=== PATIENT | female | born 1935 | race Caucasian/White ===

== ENCOUNTER 2016-10-07 15:16 | Inpatient (IN) | payer MEDICARE, BC ==
[~2016-10-07] VITALS: Ht 160 cm; Wt 61.3 kg
[~2016-10-07 15:16] MED LIST: ALDACTONE25 MG PO; ARICEPT23 MG PO; ATIVAN0.5 MG PO; FLUTICASONE PRO16 GM NASAL; GABAPENTIN100 MG PO; LEXAPRO10 MG PO; LISINOPRIL10 MG PO; MOBIC7.5 MG PO; NAMENDA10 MG PO; NAMENDA5 MG PO; PROZAC10 MG PO; TAPAZOLE 5 MG TA5 MG PO; TENORMIN25 MG PO; VITAMIN B-121000 MCG PO; VITAMIN D250000 UNIT PO; VITAMIN D5000 UNIT PO; VITAMIN D50000 UNIT PO; ZOLOFT25 MG PO
[2016-10-07 16:53] LABS: BASOPHILS 0.1 % (0.0-2.0); EOSINOPHILS 0.3 % (0-7); HEMATOCRIT 38.7 % (36.0-48.0); HEMOGLOBIN 12.5 g/dL (12-16); IMMATURE GRANULOCYTES 0.4 % (0-5); LYMPHOCYTES 13.8 % (15-50); MCHC 32.3 g/dL (31.0-37.0); MCV 86.8 fL (80.0-100.0); MEAN PLATELET VOLUME 10.1 fL (7.4-10.4); MONOCYTES 7.7 % (2-11); NEUTROPHILS 77.7 % (40-80); PLATELET COUNT 215 10x3/uL (130-400); RBC 4.46 10x6/uL (4.00-5.40); RDW 12.7 % (11.5-14.5); WBC 15.5 10x3/uL (4.8-10.8)
[2016-10-07 17:04] LABS: APPEARANCE CLEAR (CLEAR); BILIRUBIN NEGATIVE (NEGATIVE); COLOR YELLOW (YELLOW); GLUCOSE NEGATIVE (NEGATIVE); KETONE NEGATIVE (NEGATIVE); LEUKOCYTE ESTERASE NEGATIVE (NEGATIVE); NITRITE NEGATIVE (NEGATIVE); PROTEIN NEGATIVE (NEGATIVE); UROBILINOGEN NORMAL (NORMAL)
[2016-10-07 17:27] LABS: ALBUMIN 3.6 g/dL (3.4-5.0); ANION GAP 13.4 mmol/L (8-16); BILIRUBIN - TOTAL 0.24 mg/dL (0.2-1.3); CALCIUM 9.1 mg/dL (8.5-10.1); CARBON DIOXIDE 26.7 mmol/L (21.0-32.0); CREATININE - SERUM 0.8 mg/dL (0.6-1.3); POTASSIUM - SERUM 4.1 mmol/L (3.5-5.1); PROTEIN - SERUM 6.5 g/dL (6.4-8.2)
--- NOTE | 2016-10-07 18:27 | NUR ---
RAMIN HI CM contacted patient's daughter, Padma Mayes @[phone] regarding permission for her mother's admission to Detention. Patient's daughter states she is in agreement to her mother being admitted to Detention. States patient has been more aggressive and non-compliant with her care over the past 6 months. Also, states patient has not been able to make a complete sentence for the past year. Ms Mayes states she may have to move her mother to another facility, due to the [facility]'s concerns for the safety of the other clients. This information was conveyed to the attending PA and . Beatrice Wynne RN, CM.
[2016-10-08 01:31] VITALS: BP 118/60; BMI 29.3
[2016-10-08] MEDS ORDERED: RISPERDAL0.25 MG PO (03:39)
[2016-10-08] MEDS ORDERED: ACETAMINOPHEN500 M1 PO (03:41)
--- NOTE | 2016-10-08 03:42 | NUR ---
PATIENT RECIEVED FROM [facility] NEW ADMIT TO DOCTOR JACOBSON. ADMITTED FOR INCREASED AGGRESSION AND ALTERED MENTAL STATUS. PATIENT HAD ATTACKED FELLOW RESIDENTS OF THE [facility]. DAUGHTER, PAULA MILTON, P.O.A, HAS GIVEN VERBAL CONSENT FOR ADMISSION TO [facility] TO BIJAN SALAZAR R.N. AND LARA JAIMES R.N. FOR TREATMENT AND PRN HALDOL AND ATIVAN FOR AGRESSION/ANXIETY. VITALS STABLE UPON ADMIT. ORIENTED TO UNIT. CALM AND COOPERATIVE WITH STAFF AND ASSESSMENT. IVORY ALARM ON BED.
[2016-10-08 06:06] LABS: BASOPHILS 0 % (0.0-2.0); EOSINOPHILS 0.9 % (0-7); HEMOGLOBIN 12.7 g/dL (12-16); IMMATURE GRANULOCYTES 0.3 % (0-5); LYMPHOCYTES 19.7 % (15-50); MCH 27.8 pg (26.0-34.0); MCHC 32.6 g/dL (31.0-37.0); MCV 85.3 fL (80.0-100.0); MEAN PLATELET VOLUME 10.2 fL (7.4-10.4); MONOCYTES 7.9 % (2-11); NEUTROPHILS 71.2 % (40-80); PLATELET COUNT 214 10x3/uL (130-400); RBC 4.57 10x6/uL (4.00-5.40); RDW 12.8 % (11.5-14.5)
[2016-10-08 06:08] LABS: WBC 10.6 10x3/uL (4.8-10.8)
[2016-10-08 06:24] LABS: HEMOGLOBIN A1C 5.3 % (4.8-6.0)
[2016-10-08 06:36] LABS: ALBUMIN 3.2 g/dL (3.4-5.0); ANION GAP 12.4 mmol/L (8-16); BILIRUBIN - TOTAL 0.4 mg/dL (0.2-1.3); CALCIUM 9.2 mg/dL (8.5-10.1); CARBON DIOXIDE 26.2 mmol/L (21.0-32.0); CHOL - HDL RATIO 3.5 ratio (2.3-4.1); CREATININE - SERUM 0.8 mg/dL (0.6-1.3); LDL-HDL RATIO 2.1 ratio (1.5-3.5); POTASSIUM - SERUM 4.6 mmol/L (3.5-5.1); PROTEIN - SERUM 6.5 g/dL (6.4-8.2); THYROID STIMULATING HORMONE 0.02 uIU/mL (0.36-3.74)
[2016-10-08 07:57] VITALS: BP 113/64
[2016-10-08 08:41] VITALS: Ht 160 cm; Wt 61.3 kg
--- NOTE | 2016-10-08 12:36 | NUR ---
B) Patient is awake and alert, but she is confused, she knows her name only, she uses word salad and she is ambulating independently. Patient does not comprehend directions and she is unable to communicate her needs. She gets easily upset. I) Provide prescribed meds and redirect as needed. R) Patient is compliant with meds. She has not shown any aggression today. P) Continue plan of care.
--- NOTE | 2016-10-08 17:05 | PSY ---
PATIENT NAME:JENNIFER TURNER MEDICAL RECORD: [id number] : 39 LOCATION:[facility] ADMISSION DATE: 10/07/16 ACCOUNT: [id number] PSYCHIATRIC EVALUATION DATE OF EVALUATION: 10/08/16 Initial Psychiatric Workup IDENTIFYING DATA: This is now the third [facility] admission for this 81-year-old white female. HISTORY OF PRESENT ILLNESS: The patient had been previously admitted in March and also in July 2016. The patient has been a resident of the [facility] for some time. She has had repeated episodes of confusion and combativeness. Over the last 48 hours, the patient has been particularly combative and has required rehospitalization. Prior to being admitted to the [facility], the patient had lived in [place]. She had been exhibiting behavioral control problems earlier in 2016 as well. For further details, please see previously dictated histories. PAST MEDICAL HISTORY: Significant for hypothyroidism, hypertension, diverticular disease and osteoarthritis. ALLERGIES: None listed. FAMILY HISTORY: Noncontributory. SOCIAL HISTORY: The patient's daughter is involved in her care and has power of deputy commonwealth's attorney. The patient is a . She does not have substance abuse issues. MEDICATION: At time of admission included vitamin D supplements, Risperdal 0.25 mg h.s., Aricept 20 mg h.s., Aldactone 25 mg daily, Tapazole 5 mg daily, Namenda 10 mg daily, Ativan 0.5 mg daily, lisinopril 10 mg daily, Flonase nasal spray, vitamin B12 supplements, vitamin D supplements, Mobic 7.5 mg daily. On exam, the patient's mood is irritable. Affect is brittle. Speech is tangential. Content of thought shows nonspecific paranoid ideation. The patient is oriented to person and the fact that she is in a hospital, but not as to place exactly nor as to time. Insight is very limited. Judgment is poor. 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 AXIS II: No diagnosis. AXIS III: Hypertension, hypothyroidism, osteoarthritis, diverticular disease. AXIS IV: Moderate. AXIS V: 34. PLAN: 1. The patient is admitted for further medical and psychiatric evaluation. 2. Diet and activities as tolerated. 3. Adjust medication for behavioral control as needed. TRANSINT:[id number] Voice Confirmation ID: [id number] DOCUMENT ID: [id number] EDDA JACOBSON III, MD at 1705 CC: [id number] DICTATION DATE: 10/08/16 1035 TEACHER PUBLIC HEALTH: 10/08/16 1100 ADM IN [place] [address] [place] [id number]
[2016-10-08 19:27] VITALS: BP 95/46
--- NOTE | 2016-10-08 23:26 | NUR ---
B) Recieved sitting in the day room, alert and oriented to self, non-verbal or word salad, difficult to redirect, I) Administered perscribed medication, redirected as needed, oriented to the unit, R) Medication compliant, withdrawn, P) Continue plan of care, continue to monitor.
[2016-10-09 05:14] LABS: RAPID PLASMA REAGIN Non Reactive (Non Reactive)
[2016-10-09 07:50] VITALS: BP 126/67
[2016-10-09 10:19] LABS: FOLATE (FOLIC ACID) - SERUM 10.8 ng/mL (>3.0)
--- NOTE | 2016-10-09 11:22 | NUR ---
B) Patient is awake and alert, she is ambulating independently. She has been listening to groups and at times tries to interact, but she does not make sense. She has enjoyed the group and at times she asks "What can I do" She wants to work. Patient is oriented to her first name only, not able to say her last name. I) Provide prescribed meds and redirect as needed. R) Patient is compliant with medications, she has not shown any aggression today, but has poor short term memory. Daughter did call and ask about her today. Provided her with information that her Mother is calm and interacting in groups. P) Continue plan of care.
--- NOTE | 2016-10-09 14:40 | NUR ---
SW SPOKE WITH PT'S DTR, SHARI. SHARI STATED TRANSFERING HER MOTHER BACK AND FORTH TO THE [facility] IS JUST A MONEY SCAM. SHE REPORTED SHE WAS NOT SATISFIED WITH HER MOTHER'S MEDICATION CHANGES LAST TIME AND DID NOT BELIEVE THE CURRENT MD WOULD DO MUCH MORE TO SATISFY HER. SW OFFERED TO TRANSFER THE PHONE CALL TO THE DIRECTOR OF CARE, SHARI STATED SHE JUST NEEDED ASSITANCE FINDING RESOURCES FOR HER MOTHER. SW EDUCATED ON MEDICATION CHANGES AND ADJUSTMENTS AND THE HEALTH RISK OF OVER MEDICATING A PATIENT. SW ALSO DISCUSSED DIFFERENT LEVELS OF CARE FROM ASSISTED LIVING(PT'S CURRENT RESIDENCE), PERSONAL CARE HOMES, AND FDC PLACEMENT. SW DISCUSSED DISEASE PROGRESSION AND CAREGIVER BURNOUT. SW GAVE SHARI NUMBERS TO NH PLACEMENTS TO START THE PROCESS OF LOOKING INTO ALTERNATIVE LIVING ARRANGEMENTS. SW DEMONSTRATED EMPATHY AND SUPPORT. SHARI THANKED SW FOR CONVERSATION AND HELP WITH RESOURCES. SHE REPORTED KNOWING HER MOTHER IS GETTING GOOD CARE, HOWEVER, JUST FEELING FRUSTRATED BECAUSE SHE IS THE ONLY ONE TAKING CARE OF HER. SHARI VOICED UNDERSTANDING FOR REASON BEING ADMITTED ON THE UNIT AND TREATMENT.
[2016-10-09 22:07] VITALS: BP 136/58
--- NOTE | 2016-10-10 00:22 | NUR ---
B) Revcieved patient in the day room, alert and oriented to self, watching TV, patient wa s calm and cooperative, no outburst noted this shift, I) Administered perscribed medication, redirected and oriented as needed, R) Medication compliant, patient is in her own world and ignores most that goes on surrounding her, P) Continue plan of care, continue to monitor.
[2016-10-10 08:55] VITALS: BP 136/66
--- NOTE | 2016-10-10 09:20 | PN ---
PATIENT:JENNIFER TURNER MEDICAL RECORD: [id number] LOCATION:[facility] ADMISSION DATE: 10/07/16 PROGRESS NOTE DATE OF SERVICE: 10/09/2016 SUBJECTIVE: No new complaint. OBJECTIVE: The patient has been doing reasonably well. She has been for the most part cooperative with staff. She is tolerating medications without difficulty. On exam, mood is euthymic. Affect is somewhat bland. Speech is rather terse. Content of thought is negative for suicidal ideation. The patient does have significant sensorium deficits. ASSESSMENT: No change in diagnosis. PLAN: 1. Maintain current medications. 2. Continue supportive therapy. TRANSINT:[id number] Voice Confirmation ID: [id number] DOCUMENT ID: [id number] EDDA JACOBSON III, MD at 0920 CC: [id number] DICTATION DATE: 10/09/16 1226 CHIEF DIGITAL OFFICER: 10/09/16 1247 ADM IN [place] [id number] [place] [address]
--- NOTE | 2016-10-10 11:53 | NUR ---
B) Patient is awake and alert and she is happy today, smiling and she is compliant to take her meds, she has not shown any agitation or aggression, she is not interacting in groups or activities, but she does try to talk a little bit, but it is mostly word salad. Patient is ambulatory and she is pleasant, oriented to her first name only. I) Provide prescribed meds and redirect as needed. R) Patient is compliant with meds and unit milieu. P) Continue plan of care.
[2016-10-10 19:30] VITALS: BP 110/54
--- NOTE | 2016-10-11 00:30 | NUR ---
Patient was in dayroom, relaxed and pleasant. Patient not oriented to person, place, time or situation. Cooperative with medication. Continue to monitor, continue plan of care.
[2016-10-11 09:03] VITALS: BP 137/67
--- NOTE | 2016-10-11 10:01 | NUR ---
B.) Patient is awake, alert and smiling. Unable to state her name, reoriented to her name and asked again what is your name, and patient was unable to answer however she will look at you when name called. I.) Administer medications and monitor compliance. Redirect and reorient as need. Monitor for any aggressive outburst. Monitor safety. R.) Compliant with medications, pleasant and cooperative with unit milieu. Attempts converstation, but has word salad. No aggression or combativeness. P.) Continue plan of care.
[2016-10-11 19:30] VITALS: BP 122/54
--- NOTE | 2016-10-11 20:35 | NUR ---
B) Recieved sitting in the day room, alert and oriented to self, calm and quiet, follows conversation and watching the room, I) Administered perscribed medications, redirected and oriented as needed, R) Medication compliant, cooperative with staff, P) Comtinue plan of care, continue to monitor.
--- NOTE | 2016-10-12 07:54 | PN ---
PATIENT:JENNIFER TURNER MEDICAL RECORD: [id number] LOCATION:[facility] ADMISSION DATE: 10/07/16 PROGRESS NOTE DATE OF SERVICE: 10/10/2016 SUBJECTIVE: No new complaint. OBJECTIVE: The patient did become somewhat agitated with staff last night, but could be redirected. On exam today, the patient's mood is somewhat irritable. Affect is shallow and brittle. Speech is terse. Content of thought is negative for clear-cut psychosis. Sensorium shows no change. ASSESSMENT: No change in diagnoses. PLAN: 1. Maintain current medication. 2. Continue supportive therapy. TRANSINT:[id number] Voice Confirmation ID: [id number] DOCUMENT ID: [id number] EDDA JACOBSON III, MD at 0754 CC: [id number] DICTATION DATE: 10/10/16 1047 WATER METER MECHANIC: 10/10/16 1203 ADM IN [facility] [address] [place] [address]
[2016-10-12 10:07] VITALS: BP 138/73
--- NOTE | 2016-10-12 14:21 | NUR ---
PT RECIEVED SLEEPING IN THE DAYROOM. CALM, COOPERATIVE WITH NO AGGRESSION NOTED. ORIENTED TO PERSON ONLY. REDIRECTED NEEDED WITH NO EVIDENCE OF RETAINING. MEDICATIONS ADMINISTERED AND PT WAS COMPLIANT WITH HER MEDICATIONS. FALL PRECAUTIONS MAINTAINED. WILL CONTINUE TO MONITOR AND CONTINUE WITH PLAN OF CARE.
[2016-10-12 19:30] VITALS: BP 112/54
--- NOTE | 2016-10-12 19:42 | NUR ---
RECEIVED IN [facility] ROOM. SETTING IN CHAIR BY HERSELF.CALM AND COOPERATIVE WITH CARE AND ASSESSMENT. VERY CONFUSED. ORIENTED TO SELF ONLY. NO SIGNS OF AGGRESSION. ENCOURAGE TO EXPRESS NEEDS. REORIENT NEEDED. CONTINUES TO SET QUIETLY IN DINGINTROOM. CONTINUE PLAN OF CARE
[2016-10-13 10:31] VITALS: BP 124/63
--- NOTE | 2016-10-13 18:04 | NUR ---
B.) Alert and oriented to self only, patient is unable to verbalize her name, has word salad, tries to verbalize needs but is unable to. Nurse must continue to name off things until patient will state yes or no, attempts to allow patient to communicate via writing or drawing and she was unable to do this as well. Cooperative with redirection. I.) Administer medications and monitor compliance. redirect and reorient. Monitor safety. R.) No evidence of reorientation. No aggression. Cooperative with unit milieu. P.) Continue plan of care.
--- NOTE | 2016-10-13 19:50 | NUR ---
RECEIVED IN DAYROOM. SETTING IN RECLINER WITH HER EYES CLOSED. NO SIGNS OF AGGRESSION. ORIENTED TO SELF ONLY. CALM AND COOPERATIVE WITH CARE AND ASSESSMENT. REDIRECT AND REORIENT NEEDED. CONTINUES TO REST ING RECLINER. CONTINUE PLAN OF CARE
[2016-10-13 20:00] VITALS: BP 107/51
[2016-10-14 08:21] VITALS: BP 123/68
--- NOTE | 2016-10-14 09:57 | NUR ---
Nutrition Follow Up: Chart reviewed. Pt is eating 65% meal avg on a Regular diet. No new labs to assess. Meds noted. No BM since admit. Pt with good po intake at this time. Rec continue current diet. Will continue to send selective menus and honor food preferences. RD following.
--- NOTE | 2016-10-14 12:58 | NUR ---
(B)RECEIVED PATIENT SITTING IN A CHAIR AT THE NURSES STATION. SITTING WITH EYES CLOSED AND HEAD HUNG DOWN. ORIENTED TO SELF ONLY AEB RELATING "NOT HERE" SHE WAS PATTING HER HANDS ON THE TABLE. UNABLE TO ANSWER QUESTIONS. PATIENT BEGINS TO STUTTER AND CANNOT EXPRESS THOUGHTS. POOR INSIGHT INTO THE REASON FOR HOSPITALIZATION AND WHEN PATIENT WAS TOLD THE REPORTED REASON FOR ADMISSION SHE LOOKED PUZZLED AND WHEN ASKED IF THAT SOUNDS LIKE HER SHE RELATED "YEAH." PATIENT WAS INCONTINENT AND WHEN BROUGHT BACK FROM BEING CHANGED PATIIENT WAS OBSERVED PULLING HER PANTS OFF IN THE DINING ROOM. (I)ADMINISTER MEDS AND MONITOR COMPLIANCE. REDIRECT PATIENT FOR INAPPROPRIATE BEHAVIORS. (R)MED COMPLIANT. POOR REDIRECTION PATIENT BECOMES AGITATED, ARGUMENTATIVE AND RESISTANT TO REDIRECTION. LABILE IN BEHAVIOR. (P)CONTINUE POC AND MAINTAIN FALL PRECAUTIONS.
--- NOTE | 2016-10-14 13:44 | NUR ---
Patient daughter Padma called inquring about what medications ordered for patient, reviewed and taught on medications per current medication record. Also given update on patient status. Verbalized understanding and that she might be at visitation on .
[2016-10-14 19:31] VITALS: BP 148/67
--- NOTE | 2016-10-14 23:00 | NUR ---
PATIENT RECIEVED IN THE DAYROOM, JUST STARING AT THE TELEVISION. WHEN ASKED HER NAME, SHE SAID SHE DIDN'T KNOW, WHICH CAUSED HER ANXIETY. PATIENT REORIENTED. PATIENT ABLE TO FOLLOW DIRECTIONS. COMPLIANT WITH MEDICATIONS. CONTINUE PLAN OF CARE, CONTINUE TO MONITOR
[2016-10-15 08:02] VITALS: BP 122/61
--- NOTE | 2016-10-15 12:46 | NUR ---
RECEIVED SITTING IN RECLINER IN DAYROOM.IS ORIENTED TO SELF ONLY.CONFUSED AND HAS DIFFICULTY WITH SPEECH.UNABLE TO VOICE A COMPLETE THOUGHT.IS COMPLIANT WITH MEDS.WILL CONTINUE WITH PLAN OF CARE.MONITOR FOR CHANGES AND SAFETY.
[2016-10-15 19:14] VITALS: BP 105/54
--- NOTE | 2016-10-15 21:32 | NUR ---
PATIENT IN DAY ROOM, IN RECLINER, RESTING WITH EYES CLOSED. DISORIENTED TO PERSON, PLACE, TIME AND SITUATION. PATIENT WAS REORIENTED, NO AGRESSION, PLEASANT AND COOPERATIVE. COMPLIANT WITH MEDICATION. CONTINUE TO MONITOR, CONTINUE PLAN OF CARE.
[2016-10-16 09:05] VITALS: BP 122/70
--- NOTE | 2016-10-16 12:08 | NUR ---
(B)RECEIVED PATIENT SITTING IN A CHAIR AT THE NURSE'S STATION. ORIENTED TO SELF ONLY. RAMBLES AND STUTTERS WHEN TRYING TO EXPRESS SELF AND ANSWER QUESTIONS. SOCIALLY WITHDRAWN AEB SITTING IN A ROOM AWAY FROM PEERS. INTERACTS WITH STAFF WHEN APPROACHED HOWEVER DOES NOT INITIATE CONVERSATION AND HAS DIFFICULTY FOLLOWING TOPIC OF CONVERSATION AND STRAYS AWAY TOPIC. (I)ADMINISTER MEDS AND MONITOR COMPLIANCE. REORIENT NEEDED. (R)MED COMPLIANT. POOR REORIENTATION DUE TO IMPAIRED ABILITY TO COMPREHEND, PROCESS AND MAINTAIN INFORMATION. REMAINS SOCIALLY WITHDRAWN. (P)CONTINUE POC AND MAINTAIN FALL PRECAUTIONS.
--- NOTE | 2016-10-16 13:22 | PN ---
PATIENT:JENNIFER TURNER MEDICAL RECORD: [id number] LOCATION:[facility] ADMISSION DATE: 10/07/16 PROGRESS NOTE DATE OF SERVICE: 10/15/2016 Psychiatric Progress Note SUBJECTIVE: The patient's case was discussed with staff. She has no new complaint. OBJECTIVE: The patient is in good behavioral control with limited insight about her condition. She does tolerate her medicines well. ASSESSMENT: No change in diagnoses. PLAN: Current medicines have been reviewed and will be maintained. Long-term prognosis is guarded. TRANSINT:[id number] Voice Confirmation ID: [id number] DOCUMENT ID: [id number] DELILAH REILLY MD at 1322 CC: [id number] DICTATION DATE: 10/15/16 1648 VAULT INSTALLER: 10/15/162004 ADM IN [facility] [address] [place] [address]
[2016-10-16 19:30] VITALS: BP 126/55
--- NOTE | 2016-10-17 01:32 | NUR ---
B) Recieved sitting in the day room, alert and oriented to self, calm and cooperative friendly and in a good mood, I) Administered perscribed medications, redirected and oriented as needed, R) Medication compliant, social with staff, P) Continue plan of care, continue to monitor.
[2016-10-17 08:09] VITALS: BP 131/53
--- NOTE | 2016-10-17 08:18 | PN ---
PATIENT:JENNIFER TURNER MEDICAL RECORD: [id number] LOCATION:[facility] ADMISSION DATE: 10/07/16 PROGRESS NOTE DATE OF SERVICE: 10/16/2016 SUBJECTIVE: The patient's case was discussed with staff. She has no new complaint. OBJECTIVE: The patient is in good behavioral control with limited insight about her condition. She does tolerate her medications well. ASSESSMENT: No change in diagnoses. PLAN: Current medicines and therapies have been reviewed and will be maintained. Long-term prognosis is guarded. Brief supportive and educational interventions were made. TRANSINT:[id number] Voice Confirmation ID: [id number] DOCUMENT ID: [id number] DELILAH REILLY MD at 0818 CC: [id number] DICTATION DATE: 10/16/16 1317 ASSOCIATE DOCTOR: 10/16/16 1621 ADM IN [place] [id number] [place] [address]
--- NOTE | 2016-10-17 13:23 | NUR ---
attempted to call daughter back at her request but unable to reach her. left a message.
--- NOTE | 2016-10-17 13:35 | NUR ---
updated daughter Padma on pt's condition, discharge plans, and medication adjustments. verbalized understanding and thanked me for my assistance and information.
--- NOTE | 2016-10-17 15:00 | NUR ---
B.) Alert and oriented to self only. Calm and cooperative with care. I.) Administer medications and monitor compliance. Redirect as need for inappropriate behavior. Reorient as need. Monitor safety. R.) Compliant with medications. Cooperative with unit milieu. No aggression. No evidence of reorientation. Safety maintained. P.) Continue plan of care.
[2016-10-17 19:42] VITALS: BP 104/46
--- NOTE | 2016-10-17 22:53 | NUR ---
B) Recieved sitting in the day room, alert and oriented to self, calm and cooperative with staff, watching TV, withdrawn and keeping to herself, I) Administered perscribed medications, redirected and oriented as needed, R) Medication compliant, quiet and resting now P) Continue plan of care, continue to monitor.
[2016-10-18 07:45] VITALS: BP 131/59
--- NOTE | 2016-10-18 08:00 | NUR ---
PATIENT HAS BEEN DROWSY MOST OF THE DAY, ANOTHER FEMALE PATIENT GOT CLOSE TO HER AND WAS TALKING TO HER AND SHE TOLD HER TO "GO AWAY" SHE DID NOT GET AGITATED OR AGGRESSIVE THE OTHER LADY LEFT HER ALONE SOON SHE SAID IT. PATIENT CAN AMBULATE INDEPENDENTLY, SHE USES WORD SALAD AND HAS A DIFFICULT TIME COMMUNICATING AND THIS AT TIMES CAUSES HER TO BECOME AGITATED THAT STAFF OR OTHERS DO NOT UNDERSTAND HER. SHE IS PLEASANT HAS HAD NO OUTBURSTS OF ANGER TODAY. PROVIDE PRESCRIBED MEDS AND REDIRECT NEEDED. PATIENT HAS BEEN COMPLIANT WITH MEDS AND UNIT MILIE[facility]. CONTINUE PLAN OF CARE.
--- NOTE | 2016-10-18 08:28 | PN ---
PATIENT:JENNIFER TURNER MEDICAL RECORD: [id number] LOCATION:[facility] ADMISSION DATE: 10/07/16 PROGRESS NOTE DATE OF SERVICE: 10/17/2016 SUBJECTIVE: The patient's case was discussed with staff. She has no new complaint. OBJECTIVE: The patient is in good behavioral control with limited insight about her condition. She tolerates her medicines well. ASSESSMENT: No change in diagnoses. PLAN: Current medicines have been reviewed and will be maintained. Long-term prognosis is guarded. I suspect the patient can be transitioned out of the hospital soon if this level of improvement is maintained. TRANSINT:[id number] Voice Confirmation ID: [id number] DOCUMENT ID: [id number] DELILAH REILLY MD at 0828 CC: [id number] DICTATION DATE: 10/17/16 1301 PHOTO TECH: 10/17/162015 ADM IN [facility] [address] [place] [address]
[2016-10-18 09:00] VITALS: BP 131/59
[2016-10-18 19:30] VITALS: BP 117/52
--- NOTE | 2016-10-19 00:33 | NUR ---
B) Recieved sitting in the day room alert and oriented to self, calm quiet and cooperative with staff, neat and well groomed, I) Administered perscribed medications, redirected and oriented as needed, monitored for falls, R) Medication compliant, friendly and social with staff, P) Continue plan of care.
[2016-10-19 07:30] VITALS: BP 137/71
--- NOTE | 2016-10-19 12:19 | NUR ---
ORIENTED TO PERSON ONLY. WORD SALAD STILL PRESENT AND PT HAS DIFFICULTY FOLLOWING CONVERSATION WITH STAFF. REDIRECTED NEEDED BUT PT SHOWS NO EVIDENCE OF RETAINING. ADMINISTERED MEDICATIONS ORDERED AND PT WAS COMPLIANT. NO AGGRESSION NOTED. COOPERATIVE WITH CARE. FALL PRECAUTIONS MAINTAINED. WILL CONTINUE TO MONITOR AND CONTINUE WITH PLAN OF CARE.
[2016-10-19 19:30] VITALS: BP 114/50
--- NOTE | 2016-10-19 19:43 | NUR ---
RECEIVED IN DAYROOM. SETTING IN CHAIR WITH PEERS AT HER SIDE. WATCHING TV. CALM AND COOPERATIVE WITH CARE AND ASSESSMENT. ORIENTED TO SELF ONLY. NO SIGNS OF AGGRESSION. REDIRECT AND REORIENT NEEDED. CONTINUES TO SET QUIETLY WATCHING TV. CONTINUE PLAN OF CARE
[2016-10-20 11:40] VITALS: BP 115/58
--- NOTE | 2016-10-20 13:58 | PN ---
PATIENT:JENNIFER TURNER MEDICAL RECORD: [id number] LOCATION:[facility] ADMISSION DATE: 10/07/16 PROGRESS NOTE DATE OF SERVICE: 10/19/2016 SUBJECTIVE: The patient's case was discussed with staff. She has no new complaint. OBJECTIVE: The patient is in good behavioral control with limited insight about her condition. She tolerates her medicines well. ASSESSMENT: No change in diagnoses. PLAN: Current medicines have been reviewed and will be maintained. Her long-term prognosis is guarded. TRANSINT:[id number] Voice Confirmation ID: [id number] DOCUMENT ID: [id number] DELILAH REILLY MD at 1358 CC: [id number] DICTATION DATE: 10/19/16 1220 CORPORATE SECURITY MANAGER: 10/19/16 1438 ADM IN [place] [id number] [place] [address]
--- NOTE | 2016-10-20 14:37 | NUR ---
RECEIVED THIS AM SITTING IN CHAIR IN [place] AT NURSES STATION.IS ORIENTED TO SELF ONLY.WORD SALAD PRESENT,UNABLE TO VOICE A COMPLETE THOUGHT.COMPLIANT [facility] MEDS.AMBULATORY.WILL CONTINUE WITH PLAN OF CARE,MONITOR FOR CHANGES AND SAFETY.
[2016-10-20 19:30] VITALS: BP 106/51
--- NOTE | 2016-10-20 19:37 | NUR ---
RECEIVED IN DAYROOM. SETTING IN CHAIR WITH PEERS AT HER SIDE. SOCIAL AT TIME. RESTING EYES CLOSED AT TIMES. CALM AND COOPERATIVE WITH CARE AND ASSESSMENT. ENCOURAGE TO EXPRESS NEEDS. CONTINUES TO SET IN RECLINER RESTING. CONTINUE PLAN OF CARE
--- NOTE | 2016-10-21 09:43 | NUR ---
Nutrition Follow Up: Chart reviewed. Pt is eating 72% meal avg on a Regular diet. No new labs to assess. +BM 10/17/16. Meds noted including Vit D and Vit B12. No new wt to assess. Pt with good po intake at this time. Rec continue current diet. Will continue to provide selective menus and honor food preferences. RD following.
--- NOTE | 2016-10-21 10:22 | PN ---
PATIENT:JENNIFER TURNER MEDICAL RECORD: [id number] LOCATION:[facility] ADMISSION DATE: 10/07/16 PROGRESS NOTE DATE OF SERVICE: 10/13/2016 SUBJECTIVE: No new complaint is voiced. OBJECTIVE: The patient has had episodic agitation during the weekend, but generally has been fairly well behaved. The patient is occasionally resistant to care. On exam, mood is slightly irritable. Affect is constricted. Speech is terse. Content of thought is negative for overt psychosis. Sensorium shows no change. ASSESSMENT: No change in diagnosis. PLAN: 1. Maintain current medication. 2. Continue supportive therapy. TRANSINT:[id number] Voice Confirmation ID: [id number] DOCUMENT ID: [id number] EDDA JACOBSON III, MD at 1022 CC: [id number] DICTATION DATE: 10/13/16 1118 EXPERIMENTAL FLIGHT TEST MECHANIC: 10/13/16 1215 ADM IN [place] [id number] [place] [address]
--- NOTE | 2016-10-21 11:00 | NUR ---
Alert and oriented to self only, calm and cooperative with care, has trouble processing information, but will follow instructions with assist. No aggression, smiles at home and attmepts conversation with word salad. Calm and pleasant, compliant with medications. In good behavior control. Safety maintained. Continue with plan of care.
[2016-10-21] MEDS ORDERED: NAMENDA5 MG PO (11:06)
[2016-10-21] MEDS ORDERED: RISPERDAL0.5 MG PO (11:06)
--- NOTE | 2016-10-21 12:57 | PN ---
PATIENT:JENNIFER TURNER MEDICAL RECORD: [id number] LOCATION:[facility] ADMISSION DATE: 10/07/16 PROGRESS NOTE DATE OF SERVICE: 10/20/2016 SUBJECTIVE: The patient's case was discussed with staff. She has no new complaint. OBJECTIVE: The patient is in good behavioral control with limited insight about her condition. She has not been aggressive. ASSESSMENT: No change in diagnoses. PLAN: Current medicines have been reviewed and will be maintained. Her long-term prognosis is guarded. TRANSINT:[id number] Voice Confirmation ID: [id number] DOCUMENT ID: [id number] DELILAH REILLY MD at 1257 CC: [id number] DICTATION DATE: 10/20/16 1400 INDUSTRIAL COFFEE GRINDER: 10/20/16 2106 ADM IN [place] [id number] [place] [address]
--- NOTE | 2016-10-21 13:06 | NUR ---
LARRY SPOKE WITH DTRMANUELITO, ABOUT DISCHARGE PLANS AND PT BEING PICKED UP BY THE [facility] AT 1300 TOMORROW. MANUELITO VERBALIZED UNDERSTANDING AND APPRECIATION FOR SERVICES.
[2016-10-21 13:55] VITALS: BP 124/56
--- NOTE | 2016-10-21 19:45 | NUR ---
RECEIVED IN DAYROOM. SETTING IN CHAIR. NOT SOCIALIZING. CALM AND COOPERATIVE WITH CARE AND ASSESSMENT. NO SIGNS OF AGGRESSION. REDIRECT AND REORIENT NEEDED. CONTINUES TO REST QUIETLY IN CHAIR. CONTINUE PLAN OF CARE.
[2016-10-21 20:00] VITALS: BP 127/57
--- NOTE | 2016-10-22 06:46 | PN ---
PATIENT:JENNIFER TURNER MEDICAL RECORD: [id number] LOCATION:[facility] ADMISSION DATE: 10/07/16 PROGRESS NOTE DATE OF SERVICE: 10/21/2016 SUBJECTIVE: No new complaint. OBJECTIVE: The patient has been doing very well. Tolerating medications well. The [facility] has agreed to accept her back. On exam, mood is euthymic. Affect is constricted. Speech is rather terse. Content of thought is unchanged. Sensorium is unchanged. ASSESSMENT: No change in diagnosis. PLAN: 1. Continue all current medications and supportive therapy. 2. Anticipate discharge tomorrow. TRANSINT:[id number] Voice Confirmation ID: [id number] DOCUMENT ID: [id number] EDDA JACOBSON III, MD at 0646 CC: [id number] DICTATION DATE: 10/21/16 1108 FRETTED INSTRUMENTS INSPECTOR: 10/21/161952 ADM IN [facility] [address] [place] [address]
[2016-10-22 08:00] VITALS: BP 117/68
--- NOTE | 2016-10-22 10:20 | NUR ---
Alert and oriented to self only, when asked her name she takes a while but then processes information and states " Xochitl." Calm and cooperative with assessment. Slow to process information, but will follow directions once she does. Compliant with medications. No aggression. Pleasant with good behavior control. Safety maintained. Continue with plan of care for discharge today.
--- NOTE | 2016-10-22 13:15 | NUR ---
[facility] staff here to transport patient back to the [facility], calm and cooperative, with no incident. personal belongings from security will be delivered to patient.
--- NOTE | 2016-10-23 10:07 | DS ---
PATIENT:JENNIFER TURNER :39 MEDICAL RECORD: [id number] DISCHARGE SUMMARY ADMISSION DATE: 10/07/16 DISCHARGE DATE: 10/22/16 DATE OF ADMISSION: 10/07/2016 DATE OF DISCHARGE: 10/22/2016 HISTORY OR PRESENTING ILLNESS: Third [facility] Admission for this 81-year-old white female. The patient, who is a resident at the [facility], had again become combative and was showing worsened confusion. The patient has a previous diagnosis of Alzheimer dementia with behavioral disturbance. For further details, please see previously dictated history. COURSE IN THE HOSPITAL: The patient was seen in consultation by Dr. Estrada. Ongoing medical problems included hypertension, osteoarthritis, vitamin B12 deficiency, diverticular disease and past history of thyroid nodule. From medication standpoint, the patient was maintained on vitamin D supplements, Aldactone, Tapazole, lisinopril, Flonase, vitamin B12 supplements and Mobic. Psychiatric medications included Aricept 20 mg h.s., Namenda 10 mg b.i.d. and Risperdal 0.5 mg b.i.d. The patient showed a good resolution of her combativeness. During the hospitalization, she became increasingly cooperative. By the time of discharge, it was felt that she was stable enough to return to the shelter environment. FINAL DIAGNOSES: AXIS I: Alzheimer dementia with behavioral disturbance -- improving. AXIS II: No diagnosis. AXIS III: Hypertension; history of thyroid nodule; osteoarthritis; diverticular disease; vitamin B12 deficiency. AXIS IV: Moderate. AXIS V: 40. PLAN: 1. The patient is discharged on current medications. 2. Diet and activities as tolerated. 3. Followup through primary care physician at the shelter. TRANSINT:[id number] Voice Confirmation ID: [id number] DOCUMENT ID: [id number] EDDA JACOBSON III, MD at 1007 CC: [id number] DICTATION DATE: 10/22/16 0934 POWER PLANT MANAGER: 10/22/16 2349 DIS IN 10/22/16 [id number] [place] [address]
== END 2016-10-22 13:15 | disposition home or self-care (01) | DRG 57 ==
LOC: D.ER 15:16 → D.PSYCH 21:26
PROVIDERS: Physician Assistant Medical; ADMIT Psychiatry & Neurology Psychiatry
DX: G30.9 Alzheimer's disease, unspecified (principal); F02.81 Dementia in other diseases classified elsewhere, unspecified severity, with behavioral disturbance; I10 Essential (primary) hypertension; M19.90 Unspecified osteoarthritis, unspecified site; E53.8 Deficiency of other specified B group vitamins; K57.90 Diverticulosis of intestine, part unspecified, without perforation or abscess without bleeding; Z91.81 History of falling